=== PATIENT | female | born 1985 | race Caucasian/White ===

== ENCOUNTER 2016-12-04 10:50 | Emergency (ER) | payer BC ==
[2016-12-04 10:57] VITALS: BP 141/72
--- NOTE | 2016-12-04 11:00 | ER Document Report ---
HPI - HPI Patient complains to provider of: wound check Pain Level: 3 Notes: Patient is a 31-year-old female who presents the ED for a wound recheck. Patient states that she had back surgery through an anterior approach from her abdomen 17 days ago. Patient states that since then her laceration began to dehisce so the surgeon then placed jimena to help keep the wound closed. Patient states that the jimena have been in there for 5 days now. patient states that she has noticed some irritation with her inferior jimena and occasionally a scant amount of purulent discharge. Patient has been trying to keep the jimena clean she was directed. Patient is from [place] and has a follow -up on Sunday with the surgeon. She has not noticed any red streaks, abscess Denies any headache, fever, chest pain, palpitations, syncope, cough, shortness of breath, wheeze, dyspnea, abdominal pain, nausea/vomiting/diarrhea, or rash. Denies any drug allergies or recent illness. - ROS Notes: REVIEW OF SYSTEMS: CONSTITUTIONAL : Denies fever, chills, or sweats. Denies recent illness. EENT: Denies eye, ear, throat, or mouth pain or symptoms. Denies nasal or sinus congestion or discharge. Denies throat, tongue, or mouth swelling or difficulty swallowing. CARDIOVASCULAR: Denies chest pain. Denies palpitations or racing or irregular heart beat. Denies ankle edema. RESPIRATORY: Denies cough, cold, or chest congestion. Denies shortness of breath, difficulty breathing, or wheezing. GASTROINTESTINAL: Denies abdominal pain or distention. Denies nausea, vomiting , or diarrhea. Denies blood in vomitus, stools, or per rectum. Denies black, tarry stools. Denies constipation. GENITOURINARY: Denies difficulty urinating, painful urination, burning, frequency, blood in urine, or discharge. MUSCULOSKELETAL: Denies back or neck pain or stiffness. Denies joint pain or swelling. SKIN: see hpi NEUROLOGICAL: Denies confusion or altered mental status. Denies passing out or loss of consciousness. Denies dizziness or lightheadedness. Denies headache. Denies weakness or paralysis or loss of use of either side. Denies problems with gait or speech. Denies sensory loss, numbness, or tingling. ALL OTHER SYSTEMS REVIEWED AND NEGATIVE. Dictation was performed using [employer] voice recognition software - DERM Skin Color: Normal Past Medical History - Social History Smoking Status: Unknown if Ever Smoked Family History: Reviewed & Not Pertinent Renal/ Medical History: Denies: Hx Peritoneal Dialysis Vertical Provider Document - CONSTITUTIONAL Agree With Documented VS: Yes Notes: PHYSICAL EXAMINATION: GENERAL: Well-appearing, well-nourished and in no acute distress. LUNGS: Breath sounds clear to auscultation bilaterally and equal. No wheezes rales or rhonchi. HEART: Regular rate and rhythm without murmurs, rubs, gallops. ABDOMEN: Soft, nontender, nondistended abdomen. No guarding, no rebound. No masses appreciated. Normal bowel sounds present. No CVA tenderness bilaterally. Healing incision noted (see skin) PSYCH: Normal mood, normal affect. SKIN: 4-5cm healing laceration noted with 8 jimena placed. There is mild erythema/irritation at the sites of the staple, but no erythema to the incision itself. No induration or tenderness. no obvious abscess or purulent discharge from the incision. There is a scant amount of mild discharge from the 2 most inferior staple sites where they puncture the skin. 2 most inferior jimena removed. - INFECTION CONTROL TRAVEL OUTSIDE OF THE [place] IN LAST 30 DAYS: No - RESPIRATORY O2 Sat by Pulse Oximetry: 99 Course - Re-evaluation Re-evalutation: 12/04/16 11:33 Patient is an afebrile, well-hydrated, 31-year-old female who presents the ED for a wound check. Vitals are stable. PE otherwise unremarkable at this time. I did remove the 2 most inferior jimena because of early signs of a very mild infection. Wound instructions reviewed with the patient. I will send her home with Keflex to take twice a day for 1 week. Patient advised to keep her follow-up on Sunday with her surgeon. Low suspicion for any sepsis, wound dehiscence, nec fasc, or other emergent systemic condition at this time. Patient is aware that her condition can change from initial presentation and she needs to monitor symptoms closely and seek medical attention if any acute changes. Recheck with your PCM this week as well. Conservative measures otherwise for symptoms. Return to the ED with any worsening/concerning symptoms otherwise as reviewed in discharge. Patient is in agreement. - Vital Signs Vital signs: Temp Pulse Resp BP Pulse Ox 97.8 F 79 16 141/72 H 99 12/04/16 10:54 12/04/16 10:54 12/04/16 10:54 12/04/16 10:54 12/04/16 10:54 Discharge - Discharge Clinical Impression: Encounter for wound re-check Condition: Stable Disposition: HOME, SELF-CARE Instructions: Cephalexin ([facility]), Care of Stapled Wounds ([facility]) Additional Instructions: Keep the skin clean May wash with soap and water Wound instructions per surgeon Tylenol/ibuprofen as needed Take medications as directed recheck with the surgeon this week Recheck with PCM this week as well Return to the ED with any worsening symptoms and/or development of fever, headache, chest pain, palpitations, syncope, shortness of breath, trouble breathing, abdominal pain, n/v/d, abscess, purulent discharge, red streaks, or other worsening symptoms that are concerning to you. Prescriptions: Cephalexin Monohydrate [Keflex 500 mg Capsule] 500 mg PO BID #14 capsule Forms: Elevated Blood Pressure Referrals: Janna Kang Surgeon [Other] - 12/06/16
== END 2016-12-04 11:42 | disposition home or self-care (01) ==
LOC: ER 10:50
DX: Z48.89 Encounter for other specified surgical aftercare (principal); L53.9 Erythematous condition, unspecified
CPT/HCPCS: 99282